=== PATIENT | female | born 1970 | race Caucasian/White ===

== ENCOUNTER 2023-04-10 11:15 | Outpatient (RCR) | payer MEDICAID, SELFPAY ==
--- NOTE | 2023-03-18 16:00 | PT.OPPOC ---
Physical, Occupational & Speech Therapy At [facility] Current Diagnoses Bilateral primary osteoarthritis of knee (03/18/23) Pain in right knee (03/18/23) Pain in left knee (03/18/23) Visit Care Team Role Provider Type Terrance Lozano PA-C Attending Provider Non-Staff Family Provider Primary Care Provider Referring Provider Specialty: Medical Address: [facility] [address] [place], [address] Phone: Email: Plan Of Care PT-OP-T Assessment and Plan Start: 03/17/23 16:33 Freq: Status: Active Protocol: Document 03/18/23 11:17 SAK (Rec: 03/18/23 12:01 SAK [id number]) Physical Therapy Assessment Impairments Impairments Activity Tolerance,Edema,Gait, Pain,Strength Goals Four Impairment antalgic gait Short Term Goal (STG) Patient will be able to walk without significant limp using knee brace and assistive device PRN STG Duration 04/18/23 Alf Goal (LTG) Patient will be able to walk on level and uneven surfaces without limp without assistive device LTG Duration 05/17/23 Three Impairment no current exercise program Short Term Goal (STG) Patient to be instructed in HEP to address strength and flexibility LE's STG Duration 04/18/23 Alf Goal (LTG) Patient to be independnet and compliant with HEP and demonstrate right knee flxibility WNL and strength 5/ 5 Two Impairment LEFS score 32% Impairment impaired activity tolerance Short Term Goal (STG) Improve LEFS to at least 50% as measure of imporoved activity tolerance STG Duration 04/18/23 Alf Goal (LTG) Improve LEFS to at least 75% as measure of improved activity tolerance and quality of life LTG Duration 05/17/23 One Impairment right knee pain as high as 8-9 /10 with movement, walking Short Term Goal (STG) Decrease pain to no greater than 5/10 with all usual activities including movement of knee and walking STG Duration 04/18/23 Electric Welder Helper Goal (LTG) Decrease pain to no greater than 2/10 with all usual activities including movement of knee and walking LTG Duration 05/17/23 Assessment Summary Assessment Patient presents to PT with function-limiting pain right knee 8-9/10 intensity with movement and weight-bearing, no known cause. Does have a history of right knee surgery 14 years ago but can't remember procedure. Is wearing velcro knee brace and taking Ibuprofen. Severely restricted mobility due to pain. x-ray at urgent care showed arthritis per patient report. No MRI. Patient has moderate swelling ant med right knee. Objective evaluation difficult due to high pain level but signs and symptoms consistent with potential meniscal tear in addition to arthritis. Initial treatment will need to focus on pain and edema reduction, and move into ther ex as tolerated. POC was discussed and patient was in agreement. Physical Therapy Plan Frequency and Duration Frequency of Treatment 2x/Week Duration of treatment (weeks) 8 Plan of Care Start Date 03/18/23 Plan of Care End Date 05/17/23 Therapeutic Interventions Therapeutic Interventions Gait Training,Home Exercise Program,Manual Therapy, Neuromuscular Re-education, Patient/Caregiver Education, Self-Care/Home Management,Soft Tissue Mobilization,Taping, Therapeutic Activities, Therapeutic Exercises Modalities Cold Pack/Ice Massage,Electric Stimulation,Hot Packs Next Visit Focus/Plan Next Note Type Treatment Note Next Visit Plan Gentle ther ex, consider cold laser right knee, IFES and ice right knee. Instruct in use of assistive device for offloading right knee Plan of Care Dates Plan of Care Start Date 03/18/23 Plan of Care End Date 05/17/23 Electronically Signed by: Varsha Crockett, PT 03/24/23 0933 If you are in agreement with this Plan of Care, please return a signed and dated copy. I have reviewed this Plan of Care and certify that the skilled therapy services above are required to meet the patient?s needs. Physician Signature Date Printed Name and Credentials Clinical Instructor Signature Printed Name and Credentials
--- NOTE | 2023-03-18 16:00 | PT.OIE ---
Current Diagnoses Bilateral primary osteoarthritis of knee (03/18/23) Pain in right knee (03/18/23) Pain in left knee (03/18/23) Visit Care Team Role Provider Type Terrance Lozano PA-C Attending Provider Non-Staff Family Provider Primary Care Provider Referring Provider Specialty: Medical Address: [facility], [address] [place], [address] Phone: Email: Physical Therapy Initial Evaluation PT-OP-A Visit Information Start: 03/17/23 16:33 Freq: Status: Active Protocol: Document 03/18/23 11:17 SAK (Rec: 03/18/23 12:01 SAK [id number]) Out-Patient Physical Therapy Visit Information Visit Information Visit Type Initial Evaluation Visit Start Time 11:18 Visit Stop Time 12:02 Total Visit Minutes 44 Visit Number 1 Evaluation Information Evaluation Date 03/03/23 PT-OP-B Current Condition Start: 03/17/23 16:33 Freq: Status: Active Protocol: Document 03/18/23 11:17 SAK (Rec: 03/18/23 12:01 SAK [id number]) Current Condition History of Current Condition Onset Date 2 months Current Complaints right knee pain History of Current Condition surgery right knee 14 years ago, has continued to hurt some but 2 months ago really increased. WEnt to urgent care, given knee brace, using and feels helps a little. x- ray showed arthritis. No other imaging, may have MRI in the future especially if PT doesn't help. States pain has been really bad lately. No use of cane or other device. Has used some heat on knee but didn't help. Tried ice only once. Taking Ibuprofen, no other meds. When questioned reports was given prescription for Meloxican but realizes she forgot to get. No regular exercise. Reports occasional numbness distal thigh right. Also c/o right knee swelling. Goes to [facility]. Future Testing and Treatments Planned possible MRI Treatment Goals Patient/Caregiver Goals Decrease pain, be able Prior Functional Status Baseline Function- ADL's Independent Baseline Function- Mobility Independent Baseline Function- Gait indep Baseline Function- Recreation/Hobbies hiking, mushrom picking Current Functional Impairments (Reported) Functional Limitations- Mobility/Gait painful, uses brace, hasn't yet tried cane Functional Limitations- Recreation/ severe pain, not able to hike Hobbies or squat PT-OP-C Subjective Start: 03/17/23 16:33 Freq: Status: Active Protocol: Document 03/18/23 09:17 [facility] (Rec: 03/24/23 09:32 [facility] [id number]) Patient Questionnaires Lower Extremity Functional Scale LEFS Score 32% OP-PT Pain Assessment Pain Assessment Grid Paper Pain Assessment Grid Completed Yes Location right knee Intensity 9 Description Aching,Burning,Pressure,Sharp, Stabbing,Tender,Throbbing, Tingling,With Movement Frequency Frequent Pain Aggravating Factors Activity,Standing,Walking, Stair Climbing Pain Alleviating Factors Cold,Heat,Inactivity,Rest PT-OP-G Mobility & Gait Start: 03/17/23 16:33 Freq: Status: Active Protocol: Document 03/18/23 09:17 [facility] (Rec: 03/24/23 09:32 [facility] [id number]) OP Gait Assessment Gait Gait Assistance Required: Independent Able to Maintain Weight Bearing Status Yes During Gait Assistive Devices Assistive Device None Gait Deviations General Gait Pattern Antalgic Factors Limiting Gait Function Factors Limiting Gait Function Pain Stair Climbing Evaluation Comments Stair Climbing Comments not done today PT-OP-H Neuro Start: 03/17/23 16:33 Freq: Status: Active Protocol: Document 03/18/23 09:17 [facility] (Rec: 03/24/23 09:32 [facility] [id number]) Sensation Evaluation Gross Sensation Gross Sensation WNL PT-OP-J Posture/Palpation/Skin Start: 03/17/23 16:33 Freq: Status: Active Protocol: Document 03/18/23 09:17 [facility] (Rec: 03/24/23 09:32 [facility] [id number]) Posture Evaluation Position Standing Knee Posture (R) Excess Flexion Comments Posture Comments decreased weight bearing right Skin Assessment Edema Assessment right knee Edema Type Non-Pitting Edema Appearance Puffy Subjective Edema Description Pain,Tightness PT-OP-K Range of Motion Start: 03/17/23 16:33 Freq: Status: Active Protocol: Document 03/18/23 09:17 [facility] (Rec: 03/24/23 09:32 [facility] [id number]) Hip Goniometric Range of Motion Hip maddi Hip ROM WFL Yes Knee Goniometric Range of Motion Knee Right Knee ROM WFL No Flexion Active (degrees) 95 Extension Active (degrees) 15 Left Knee ROM WFL Yes Ankle and Foot Goniometric Range of Motion Ankle and Foot Right Ankle/Foot ROM WFL No Dorsiflexion with Knee Flexed 5 Dorsiflexion with Knee Extended 0 Left Ankle/Foot ROM WFL Yes PT-OP-L Special Tests Start: 03/17/23 16:33 Freq: Status: Active Protocol: Document 03/18/23 09:17 [facility] (Rec: 03/24/23 09:32 [facility] [id number]) Special Tests Knee Special Tests Posterior Draw Test Results - Anterior Draw Test Results - PT-OP-M Strength Start: 03/17/23 16:33 Freq: Status: Active Protocol: Document 03/18/23 09:17 [facility] (Rec: 03/24/23 09:32 [facility] [id number]) Hip Strength Hip Manual Muscle Testing Right Comments painful all motions Left Flexion (L2) 5 Normal Extension (S1) 5 Normal Abduction 5 Normal External Rotation 5 Normal Internal Rotation 5 Normal Knee Strength Knee Manual Muscle Testing Right Flexion (S2) 3- Fair- Extension (L3) 3- Fair- Left Flexion (S2) 3- Fair- Extension (L3) 3- Fair- Comments limited by pain PT-OP-Q Treatments Start: 03/17/23 16:33 Freq: Status: Active Protocol: Document 03/18/23 09:17 [facility] (Rec: 03/24/23 09:32 [facility] [id number]) Manual Therapy Treatment Taping right knee Body Location right knee Treatment Focus edema reduction Type of Tape Kinesio Tape Skin Inspection intact Comments 2 fan strips, crossing on ant right knee with paper off tension Self-Care/Home Management Treatment Education Patient Education Home Exercise Program Other Education ankle pumps and gentle isometrics PT-OP-R Modalities Start: 03/17/23 16:33 Freq: Status: Active Protocol: Document 03/18/23 11:17 [facility] (Rec: 03/18/23 12:01 [facility] [id number]) Electric Stimulation Electric Stimulation Interferential Current (IFC) Duration (Minutes) 10 Combined With Heat/Cold Cold Pack PT-OP-T Assessment and Plan Start: 03/17/23 16:33 Freq: Status: Active Protocol: Document 03/18/23 11:17 [facility] (Rec: 03/18/23 12:01 [facility] [id number]) Physical Therapy Assessment Impairments Impairments Activity Tolerance,Edema,Gait, Pain,Strength Goals Four Impairment antalgic gait Short Term Goal (STG) Patient will be able to walk without significant limp using knee brace and assistive device PRN STG Duration 04/18/23 Fci Goal (LTG) Patient will be able to walk on level and uneven surfaces without limp without assistive device LTG Duration 05/17/23 Three Impairment no current exercise program Short Term Goal (STG) Patient to be instructed in HEP to address strength and flexibility LE's STG Duration 04/18/23 Microbiology Quality Control Technician Goal (LTG) Patient to be independnet and compliant with HEP and demonstrate right knee flxibility WNL and strength 5/ 5 Two Impairment LEFS score 32% Impairment impaired activity tolerance Short Term Goal (STG) Improve LEFS to at least 50% as measure of imporoved activity tolerance STG Duration 04/18/23 Fci Goal (LTG) Improve LEFS to at least 75% as measure of improved activity tolerance and quality of life LTG Duration 05/17/23 One Impairment right knee pain as high as 8-9 /10 with movement, walking Short Term Goal (STG) Decrease pain to no greater than 5/10 with all usual activities including movement of knee and walking STG Duration 04/18/23 Fci Goal (LTG) Decrease pain to no greater than 2/10 with all usual activities including movement of knee and walking LTG Duration 05/17/23 Assessment Summary Assessment Patient presents to PT with function-limiting pain right knee 8-9/10 intensity with movement and weight-bearing, no known cause. Does have a history of right knee surgery 14 years ago but can't remember procedure. Is wearing velcro knee brace and taking Ibuprofen. Severely restricted mobility due to pain. x-ray at urgent care showed arthritis per patient report. No MRI. Patient has moderate swelling ant med right knee. Objective evaluation difficult due to high pain level but signs and symptoms consistent with potential meniscal tear in addition to arthritis. Initial treatment will need to focus on pain and edema reduction, and move into ther ex as tolerated. POC was discussed and patient was in agreement. Physical Therapy Plan Frequency and Duration Frequency of Treatment 2x/Week Duration of treatment (weeks) 8 Plan of Care Start Date 03/18/23 Plan of Care End Date 05/17/23 Therapeutic Interventions Therapeutic Interventions Gait Training,Home Exercise Program,Manual Therapy, Neuromuscular Re-education, Patient/Caregiver Education, Self-Care/Home Management,Soft Tissue Mobilization,Taping, Therapeutic Activities, Therapeutic Exercises Modalities Cold Pack/Ice Massage,Electric Stimulation,Hot Packs Next Visit Focus/Plan Next Note Type Treatment Note Next Visit Plan Gentle ther ex, consider cold laser right knee, IFES and ice right knee. Instruct in use of assistive device for offloading right knee
--- NOTE | 2023-04-01 14:10 | PT-OP ANOTE ---
DNS; called from parking lot at 1410 for 1345 appt.
--- NOTE | 2023-04-03 12:02 | PT.OTN ---
Current Diagnoses Bilateral primary osteoarthritis of knee (04/03/23) Pain in right knee (04/03/23) Pain in left knee (04/03/23) Physical Therapy Treatment Note PT-OP-A Visit Information Start: 03/17/23 16:33 Freq: Status: Active Protocol: Document 04/03/23 11:17 SAK (Rec: 04/03/23 12:02 [facility] [id number]) Out-Patient Physical Therapy Visit Information Visit Information Visit Type Treatment Note Visit Note 04/14 Visit Start Time 11:17 Visit Stop Time 12:07 Visit Number 2 Evaluation Information Evaluation Date 03/03/23 Precautions Precautions patient attends [facility] PT-OP-B Current Condition Start: 03/17/23 16:33 Freq: Status: Active Protocol: Document 04/03/23 11:17 SAK (Rec: 04/03/23 12:02 [facility] [id number]) Current Condition History of Current Condition Onset Date 2 months Current Complaints right knee pain History of Current Condition surgery right knee 14 years ago, has continued to hurt some but 2 months ago really increased. WEnt to urgent care, given knee brace, using and feels helps a little. x- ray showed arthritis. No other imaging, may have MRI in the future especially if PT doesn't help. States pain has been really bad lately. No use of cane or other device. Has used some heat on knee but didn't help. Tried ice only once. Taking Ibuprofen, no other meds. When questioned reports was given prescription for Meloxican but realizes she forgot to get. No regular exercise. Reports occasional numbness distal thigh right. Also c/o right knee swelling. Goes to [facility]. Future Testing and Treatments Planned possible MRI PT-OP-C Subjective Start: 03/17/23 16:33 Freq: Status: Active Protocol: Document 04/03/23 11:17 SAK (Rec: 04/03/23 12:02 [facility] [id number]) OP-PT Subjective Patient Comments Patient Comments patient reports she has done a few of the exercises but not much due to memory and helping a friend with project. Kinesiotape helpful in dec pain and swelling. Fell off after 3 days. PT-OP-G Mobility & Gait Start: 03/17/23 16:33 Freq: Status: Active Protocol: Document 03/18/23 09:17 SAK (Rec: 03/24/23 09:32 [facility] [id number]) OP Gait Assessment Gait Gait Assistance Required: Independent Able to Maintain Weight Bearing Status Yes During Gait Assistive Devices Assistive Device None Gait Deviations General Gait Pattern Antalgic Factors Limiting Gait Function Factors Limiting Gait Function Pain Stair Climbing Evaluation Comments Stair Climbing Comments not done today PT-OP-H Neuro Start: 03/17/23 16:33 Freq: Status: Active Protocol: Document 03/18/23 09:17 [facility] (Rec: 03/24/23 09:32 [facility] [id number]) Sensation Evaluation Gross Sensation Gross Sensation WNL PT-OP-J Posture/Palpation/Skin Start: 03/17/23 16:33 Freq: Status: Active Protocol: Document 03/18/23 09:17 SAK (Rec: 03/24/23 09:32 [facility] [id number]) Posture Evaluation Position Standing Knee Posture (R) Excess Flexion Comments Posture Comments decreased weight bearing right Skin Assessment Edema Assessment right knee Edema Type Non-Pitting Edema Appearance Puffy Subjective Edema Description Pain,Tightness PT-OP-K Range of Motion Start: 03/17/23 16:33 Freq: Status: Active Protocol: Document 03/18/23 09:17 [facility] (Rec: 03/24/23 09:32 [facility] [id number]) Hip Goniometric Range of Motion Hip maddi Hip ROM WFL Yes Knee Goniometric Range of Motion Knee Right Knee ROM WFL No Flexion Active (degrees) 95 Extension Active (degrees) 15 Left Knee ROM WFL Yes Ankle and Foot Goniometric Range of Motion Ankle and Foot Right Ankle/Foot ROM WFL No Dorsiflexion with Knee Flexed 5 Dorsiflexion with Knee Extended 0 Left Ankle/Foot ROM WFL Yes PT-OP-L Special Tests Start: 03/17/23 16:33 Freq: Status: Active Protocol: Document 03/18/23 09:17 [facility] (Rec: 03/24/23 09:32 [facility] [id number]) Special Tests Knee Special Tests Posterior Draw Test Results - Anterior Draw Test Results - PT-OP-M Strength Start: 03/17/23 16:33 Freq: Status: Active Protocol: Document 03/18/23 09:17 SAK (Rec: 03/24/23 09:32 [facility] [id number]) Hip Strength Hip Manual Muscle Testing Right Comments painful all motions Left Flexion (L2) 5 Normal Extension (S1) 5 Normal Abduction 5 Normal External Rotation 5 Normal Internal Rotation 5 Normal Knee Strength Knee Manual Muscle Testing Right Flexion (S2) 3- Fair- Extension (L3) 3- Fair- Left Flexion (S2) 3- Fair- Extension (L3) 3- Fair- Comments limited by pain PT-OP-Q Treatments Start: 03/17/23 16:33 Freq: Status: Active Protocol: Document 04/03/23 11:17 [facility] (Rec: 04/03/23 12:02 [facility] [id number]) Therapeutic Exercises Supine Exercises glut set Reps/Minutes 10x5 quad set Reps/Minutes 10x5 Sitting Exercises HS isometric Equipment Used chair, ball Reps/Minutes 10x5 ankle pumps Reps/Minutes 10x Gait Training Gait Activity trekking poles Device Used 1,2 poles Level of Assistance SBA, cues for sequencing Distance/Duration 100 ft x 2 Treatment Focus offloading right knee Manual Therapy Treatment Taping right knee Body Location right knee Treatment Focus edema reduction Type of Tape Kinesio Tape Skin Inspection intact Comments 2 fan strips, crossing on ant right knee with paper off tension Self-Care/Home Management Treatment Education Other Education reviewed HEP PT-OP-R Modalities Start: 03/17/23 16:33 Freq: Status: Active Protocol: Document 04/03/23 11:17 [facility] (Rec: 04/03/23 12:02 [facility] [id number]) Electric Stimulation Electric Stimulation Interferential Current (IFC) Intensity 25 Target/Sweep Sweep Combined With Heat/Cold Cold Pack Comments 10 min PT-OP-T Assessment and Plan Start: 03/17/23 16:33 Freq: Status: Active Protocol: Document 04/03/23 11:17 [facility] (Rec: 04/03/23 12:02 [facility] [id number]) Physical Therapy Assessment Impairments Impairments Activity Tolerance,Edema,Gait, Pain,Strength Goals Four Impairment antalgic gait Short Term Goal (STG) Patient will be able to walk without significant limp using knee brace and assistive device PRN STG Duration 04/18/23 Fare Register Repairer Goal (LTG) Patient will be able to walk on level and uneven surfaces without limp without assistive device LTG Duration 05/17/23 Three Impairment no current exercise program Short Term Goal (STG) Patient to be instructed in HEP to address strength and flexibility LE's STG Duration 04/18/23 Halfway Goal (LTG) Patient to be independnet and compliant with HEP and demonstrate right knee flxibility WNL and strength 5/ 5 Two Impairment LEFS score 32% Impairment impaired activity tolerance Short Term Goal (STG) Improve LEFS to at least 50% as measure of imporoved activity tolerance STG Duration 04/18/23 Fare Register Repairer Goal (LTG) Improve LEFS to at least 75% as measure of improved activity tolerance and quality of life LTG Duration 05/17/23 One Impairment right knee pain as high as 8-9 /10 with movement, walking Short Term Goal (STG) Decrease pain to no greater than 5/10 with all usual activities including movement of knee and walking STG Duration 04/18/23 Halfway Goal (LTG) Decrease pain to no greater than 2/10 with all usual activities including movement of knee and walking LTG Duration 05/17/23 Assessment Summary Assessment low compliance to HEP due to memory issues and helping friend with project. Patient does remember being given handout. [place] kinesiotape was helpful to dec swelling and pain but came off after 3 days . Hasn't been seen in PT x 2 weeks. Physical Therapy Plan Frequency and Duration Frequency of Treatment 2x/Week Duration of treatment (weeks) 8 Plan of Care Start Date 03/18/23 Plan of Care End Date 05/17/23 Therapeutic Interventions Therapeutic Interventions Gait Training,Home Exercise Program,Manual Therapy, Neuromuscular Re-education, Patient/Caregiver Education, Self-Care/Home Management,Soft Tissue Mobilization,Taping, Therapeutic Activities, Therapeutic Exercises Modalities Cold Pack/Ice Massage,Electric Stimulation,Hot Packs Next Visit Focus/Plan Next Note Type Treatment Note Next Visit Plan Continue progresion of ther ex , do standing heel/toe raise and minisquats with mirror for visual feedback. Consider cold laser. Review gait with trekking poles.
--- NOTE | 2023-04-10 12:14 | PT.OTN ---
Current Diagnoses Bilateral primary osteoarthritis of knee (04/10/23) Pain in right knee (04/10/23) Pain in left knee (04/10/23) Physical Therapy Treatment Note PT-OP-A Visit Information Start: 03/17/23 16:33 Freq: Status: Active Protocol: Document 04/10/23 11:18 [facility]AK (Rec: 04/10/23 12:14 [facility] [id number]) Out-Patient Physical Therapy Visit Information Visit Information Visit Type Treatment Note Visit Note 05/12 Visit Start Time 11:17 Visit Stop Time 12:09 Visit Number 3 Evaluation Information Evaluation Date 03/03/23 Precautions Precautions patient attends [facility] PT-OP-B Current Condition Start: 03/17/23 16:33 Freq: Status: Active Protocol: Document 04/10/23 11:18 SAK (Rec: 04/10/23 12:14 [facility] [id number]) Current Condition History of Current Condition Onset Date 2 months Current Complaints right knee pain History of Current Condition surgery right knee 14 years ago, has continued to hurt some but 2 months ago really increased. WEnt to urgent care, given knee brace, using and feels helps a little. x- ray showed arthritis. No other imaging, may have MRI in the future especially if PT doesn't help. States pain has been really bad lately. No use of cane or other device. Has used some heat on knee but didn't help. Tried ice only once. Taking Ibuprofen, no other meds. When questioned reports was given prescription for Meloxican but realizes she forgot to get. No regular exercise. Reports occasional numbness distal thigh right. Also c/o right knee swelling. Goes to [facility]. Future Testing and Treatments Planned possible MRI Treatment Goals Patient/Caregiver Goals Decrease pain, be able to return to prior level of function PT-OP-C Subjective Start: 03/17/23 16:33 Freq: Status: Active Protocol: Document 04/10/23 11:18 SAK (Rec: 04/10/23 12:14 [facility] [id number]) OP-PT Subjective Patient Comments Patient Comments Has done HEP, the one with towel is hard. [employer] likes kinesiotape but it fell off same day. Hoping to be able to go to [facility] for aquatic exercise. PT-OP-G Mobility & Gait Start: 03/17/23 16:33 Freq: Status: Active Protocol: Document 03/18/23 09:17 [facility] (Rec: 03/24/23 09:32 [facility] [id number]) OP Gait Assessment Gait Gait Assistance Required: Independent Able to Maintain Weight Bearing Status Yes During Gait Assistive Devices Assistive Device None Gait Deviations General Gait Pattern Antalgic Factors Limiting Gait Function Factors Limiting Gait Function Pain Stair Climbing Evaluation Comments Stair Climbing Comments not done today PT-OP-H Neuro Start: 03/17/23 16:33 Freq: Status: Active Protocol: Document 03/18/23 09:17 [facility]AK (Rec: 03/24/23 09:32 [facility] [id number]) Sensation Evaluation Gross Sensation Gross Sensation WNL PT-OP-J Posture/Palpation/Skin Start: 03/17/23 16:33 Freq: Status: Active Protocol: Document 03/18/23 09:17 [facility]AK (Rec: 03/24/23 09:32 [facility] [id number]) Posture Evaluation Position Standing Knee Posture (R) Excess Flexion Comments Posture Comments decreased weight bearing right Skin Assessment Edema Assessment right knee Edema Type Non-Pitting Edema Appearance Puffy Subjective Edema Description Pain,Tightness PT-OP-K Range of Motion Start: 03/17/23 16:33 Freq: Status: Active Protocol: Document 03/18/23 09:17 [facility]AK (Rec: 03/24/23 09:32 [facility] [id number]) Hip Goniometric Range of Motion Hip maddi Hip ROM WFL Yes Knee Goniometric Range of Motion Knee Right Knee ROM WFL No Flexion Active (degrees) 95 Extension Active (degrees) 15 Left Knee ROM WFL Yes Ankle and Foot Goniometric Range of Motion Ankle and Foot Right Ankle/Foot ROM WFL No Dorsiflexion with Knee Flexed 5 Dorsiflexion with Knee Extended 0 Left Ankle/Foot ROM WFL Yes PT-OP-L Special Tests Start: 03/17/23 16:33 Freq: Status: Active Protocol: Document 03/18/23 09:17 [facility] (Rec: 03/24/23 09:32 [facility] [id number]) Special Tests Knee Special Tests Posterior Draw Test Results - Anterior Draw Test Results - PT-OP-M Strength Start: 03/17/23 16:33 Freq: Status: Active Protocol: Document 03/18/23 09:17 [facility]AK (Rec: 03/24/23 09:32 [facility] [id number]) Hip Strength Hip Manual Muscle Testing Right Comments painful all motions Left Flexion (L2) 5 Normal Extension (S1) 5 Normal Abduction 5 Normal External Rotation 5 Normal Internal Rotation 5 Normal Knee Strength Knee Manual Muscle Testing Right Flexion (S2) 3- Fair- Extension (L3) 3- Fair- Left Flexion (S2) 3- Fair- Extension (L3) 3- Fair- Comments limited by pain PT-OP-Q Treatments Start: 03/17/23 16:33 Freq: Status: Active Protocol: Document 04/10/23 11:18 [facility] (Rec: 04/10/23 12:14 [facility] [id number]) Cardio Equipment Recumbent Elliptical (Biodex) Duration (Minutes) 6 Resistance 1 Seat Position 6 Therapeutic Exercises Supine Exercises ball squeeze Reps/Minutes 10x short arc quad Reps/Minutes 10x heel dig Reps/Minutes 10x bridge Reps/Minutes 10x SLR Reps/Minutes 10x Sidelying Exercises hip abduction Reps/Minutes 10x Sitting Exercises HS isometric Equipment Used chair, ball Reps/Minutes 2x Comments discontinued Standing Exercises squats Standing Exercise Name shallow, chaiar Reps/Minutes 10x heel/toe raise Reps/Minutes 10x Manual Therapy Treatment Taping right knee Body Location right knee Treatment Focus edema reduction Type of Tape Kinesio Tape Skin Inspection intact Comments 2 fan strips, crossing on ant right knee with paper off tension Self-Care/Home Management Treatment Education Other Education issued updated HEP PT-OP-R Modalities Start: 03/17/23 16:33 Freq: Status: Active Protocol: Document 04/10/23 11:18 [facility] (Rec: 04/10/23 12:14 [facility] [id number]) Electric Stimulation Electric Stimulation Interferential Current (IFC) Intensity 25 Target/Sweep Sweep Combined With Heat/Cold Cold Pack Comments 10 min PT-OP-T Assessment and Plan Start: 03/17/23 16:33 Freq: Status: Active Protocol: Document 04/10/23 11:18 [facility] (Rec: 04/10/23 12:14 [facility] [id number]) Physical Therapy Assessment Impairments Impairments Activity Tolerance,Edema,Gait, Pain,Strength Goals Four Impairment antalgic gait Short Term Goal (STG) Patient will be able to walk without significant limp using knee brace and assistive device PRN STG Duration 04/18/23 [employer] Goal (LTG) Patient will be able to walk on level and uneven surfaces without limp without assistive device LTG Duration 05/17/23 Three Impairment no current exercise program Short Term Goal (STG) Patient to be instructed in HEP to address strength and flexibility LE's STG Duration 04/18/23 [employer] Goal (LTG) Patient to be independnet and compliant with HEP and demonstrate right knee flxibility WNL and strength 5/ 5 Two Impairment LEFS score 32% Impairment impaired activity tolerance Short Term Goal (STG) Improve LEFS to at least 50% as measure of imporoved activity tolerance STG Duration 04/18/23 [employer] Goal (LTG) Improve LEFS to at least 75% as measure of improved activity tolerance and quality of life LTG Duration 05/17/23 One Impairment right knee pain as high as 8-9 /10 with movement, walking Short Term Goal (STG) Decrease pain to no greater than 5/10 with all usual activities including movement of knee and walking STG Duration 04/18/23 Correction Goal (LTG) Decrease pain to no greater than 2/10 with all usual activities including movement of knee and walking LTG Duration 05/17/23 Assessment Summary Assessment Patient able to progress with ther ex, updated HEP HO. Good tolerance. Continues to benefit from kinesiotape, used rubbing alcohol to clean skin prior to taping for improved adherence Physical Therapy Plan Frequency and Duration Frequency of Treatment 2x/Week Duration of treatment (weeks) 8 Plan of Care Start Date 03/18/23 Plan of Care End Date 05/17/23 Therapeutic Interventions Therapeutic Interventions Gait Training,Home Exercise Program,Manual Therapy, Neuromuscular Re-education, Patient/Caregiver Education, Self-Care/Home Management,Soft Tissue Mobilization,Taping, Therapeutic Activities, Therapeutic Exercises Modalities Cold Pack/Ice Massage,Electric Stimulation,Hot Packs Next Visit Focus/Plan Next Note Type Treatment Note Next Visit Plan Assess response to last session, continue to progress HEP as tolerated.
--- NOTE | 2023-05-08 11:43 | PT-OP ANOTE ---
Addendum entered and electronically signed by Varsha Crockett, PT 05/08/23 11:43: DNS. Spoke to patient by phone; she states she called 1 week ago stating she thought she would need to cancel but was told no other appointments available. She is currently in [place]. Begged to not be discharged. Patient informed she doesn't have any further appointment scheduled. She stated she promises not to miss any more appointments, that she really needs it because her knee is so bad, will call to schedule when she returns home. Informed she would definitely be discharged if she were to miss any further appointments. Patient agreed. [ End ] Original Note: DNS.
--- NOTE | 2023-06-04 16:10 | PT.OPDS ---
Current Diagnoses Bilateral primary osteoarthritis of knee (04/10/23) Pain in right knee (04/10/23) Pain in left knee (04/10/23) Visit Care Team Role Provider Type Terrance Lozano PA-C Attending Provider Non-Staff Family Provider Primary Care Provider Referring Provider Specialty: Medical Address: [facility], [address] [place], [address] Phone: Email: Visit Number Visit Number 3 Discharge Summary PT-OP-B Current Condition Start: 03/17/23 16:33 Freq: Status: Active Protocol: Document 04/10/23 11:18 [facility] (Rec: 04/10/23 12:14 [facility] [id number]) Current Condition History of Current Condition Onset Date 2 months Current Complaints right knee pain History of Current Condition surgery right knee 14 years ago, has continued to hurt some but 2 months ago really increased. WEnt to urgent care, given knee brace, using and feels helps a little. x- ray showed arthritis. No other imaging, may have MRI in the future especially if PT doesn't help. States pain has been really bad lately. No use of cane or other device. Has used some heat on knee but didn't help. Tried ice only once. Taking Ibuprofen, no other meds. When questioned reports was given prescription for Meloxican but realizes she forgot to get. No regular exercise. Reports occasional numbness distal thigh right. Also c/o right knee swelling. Goes to [facility]. Future Testing and Treatments Planned possible MRI Treatment Goals Patient/Caregiver Goals Decrease pain, be able to return to prior level of function PT-OP-C Subjective Start: 03/17/23 16:33 Freq: Status: Active Protocol: Document 04/10/23 11:18 [facility] (Rec: 04/10/23 12:14 [facility] [id number]) OP-PT Subjective Patient Comments Patient Comments Has done HEP, the one with towel is hard. [employer] likes kinesiotape but it fell off same day. Hoping to be able to go to [facility] [place] for aquatic exercise. PT-OP-G Mobility & Gait Start: 03/17/23 16:33 Freq: Status: Active Protocol: Document 03/18/23 09:17 [facility] (Rec: 03/24/23 09:32 [facility] [id number]) OP Gait Assessment Gait Gait Assistance Required: Independent Able to Maintain Weight Bearing Status Yes During Gait Assistive Devices Assistive Device None Gait Deviations General Gait Pattern Antalgic Factors Limiting Gait Function Factors Limiting Gait Function Pain Stair Climbing Evaluation Comments Stair Climbing Comments not done today PT-OP-H Neuro Start: 03/17/23 16:33 Freq: Status: Active Protocol: Document 03/18/23 09:17 [facility] (Rec: 03/24/23 09:32 [facility] [id number]) Sensation Evaluation Gross Sensation Gross Sensation WNL PT-OP-J Posture/Palpation/Skin Start: 03/17/23 16:33 Freq: Status: Active Protocol: Document 03/18/23 09:17 [facility] (Rec: 03/24/23 09:32 [facility] [id number]) Posture Evaluation Position Standing Knee Posture (R) Excess Flexion Comments Posture Comments decreased weight bearing right Skin Assessment Edema Assessment right knee Edema Type Non-Pitting Edema Appearance Puffy Subjective Edema Description Pain,Tightness PT-OP-K Range of Motion Start: 03/17/23 16:33 Freq: Status: Active Protocol: Document 03/18/23 09:17 [facility] (Rec: 03/24/23 09:32 [facility] [id number]) Hip Goniometric Range of Motion Hip maddi Hip ROM WFL Yes Knee Goniometric Range of Motion Knee Right Knee ROM WFL No Flexion Active (degrees) 95 Extension Active (degrees) 15 Left Knee ROM WFL Yes Ankle and Foot Goniometric Range of Motion Ankle and Foot Right Ankle/Foot ROM WFL No Dorsiflexion with Knee Flexed 5 Dorsiflexion with Knee Extended 0 Left Ankle/Foot ROM WFL Yes PT-OP-L Special Tests Start: 03/17/23 16:33 Freq: Status: Active Protocol: Document 03/18/23 09:17 [facility] (Rec: 03/24/23 09:32 [facility] [id number]) Special Tests Knee Special Tests Posterior Draw Test Results - Anterior Draw Test Results - PT-OP-M Strength Start: 03/17/23 16:33 Freq: Status: Active Protocol: Document 03/18/23 09:17 [facility] (Rec: 03/24/23 09:32 [facility] [id number]) Hip Strength Hip Manual Muscle Testing Right Comments painful all motions Left Flexion (L2) 5 Normal Extension (S1) 5 Normal Abduction 5 Normal External Rotation 5 Normal Internal Rotation 5 Normal Knee Strength Knee Manual Muscle Testing Right Flexion (S2) 3- Fair- Extension (L3) 3- Fair- Left Flexion (S2) 3- Fair- Extension (L3) 3- Fair- Comments limited by pain PT-OP-T Assessment and Plan Start: 03/17/23 16:33 Freq: Status: Active Protocol: Document 06/04/23 16:09 [facility] (Rec: 06/04/23 16:10 [facility] [id number]) Physical Therapy Plan Discharge Physical Therapy Discharge Reasons No Longer Attending PT
== END 2023-06-06 10:30 | disposition home or self-care (01) ==
LOC: PHYS 11:15
PROVIDERS: Family Provider Physician Assistant; PCP Physician Assistant; Referring Provider Physician Assistant; Visit Provider Physician Assistant
DX: M17.0 Bilateral primary osteoarthritis of knee (principal); M25.561 Pain in right knee; M25.562 Pain in left knee
CPT/HCPCS: 97014; 97110; 97140; 97162; G0283

== ENCOUNTER 2023-05-13 14:21 | Emergency (ER) | payer OTHER, MEDICAID, SELFPAY ==
[2023-05-13 14:24] VITALS: BP 145/88; PULSE 88; RESP 16; TEMP 36.2; O2SAT 100; BMI 32.8
--- NOTE | 2023-05-13 14:36 | ED.SKABFB ---
HPI - Skin/Abscess/Foreign Bdy <Blake Covington PA-C - Last Filed: 05/13/23 15:37> General Chief complaint: Skin/Abscess/Foreign Body Stated complaint: pain in the back of the neck Time Seen by Provider: 05/13/23 14:32 Source: patient Mode of arrival: Ambulatory History of Present Illness HPI narrative: 53-year-old female with past medical history psoriasis, hypertension, hypothyroidism presents to the ED with 3 days of a lump behind the right ear. Patient states that due to her psoriasis, her skin can get crusty, scabby. Patient states that she started feeling a lump 3 days ago which is extremely painful. Patient denies fever, chills, nausea, vomiting. Related Data Previous Rx's Medication Instructions Recorded doxycycline hyclate 100 mg capsule 100 mg PO BID 7 days #14 caps 05/13/23 Allergies Allergy/AdvReac Type Severity Reaction Status Date / Time codeine AdvReac Rash Verified 05/13/23 14:24 Review of Systems <Blake Covington PA-C - Last Filed: 05/13/23 15:37> Constitutional Constitutional: Denies chills, Denies fatigue, Denies fever(s), Denies frequent falls, Denies lethargy and Denies weakness Eyes Eyes: Denies change in vision, Denies eye discharge, Denies irritation and Denies loss of vision ENT Ears, Nose, Mouth, and Throat: Denies change in voice, Denies dizziness, Denies neck pain, Denies sore throat and Denies throat swelling Cardiovascular Cardiovascular: Denies chest pain, Denies irregular heart rhythm, Denies lightheadedness, Denies palpitations, Denies dyspnea, Denies dyspnea on exertion and Denies orthopnea Respiratory Respiratory: Denies cough, Denies dyspnea, Denies dyspnea on exertion and Denies wheezing Gastrointestinal Gastrointestinal: Denies abdominal pain, Denies change in bowel habits, Denies diarrhea, Denies nausea and Denies vomiting Musculoskeletal Musculoskeletal: Denies neck pain and Denies numbness Integumentary/Breasts Skin/Breast: Denies pruritus, Denies erythema, Denies rash and Denies wounds Neurologic Neurologic: Denies behavioral changes, Denies confusion, Denies dizziness, Denies frequent falls, Denies loss of vision, Denies numbness and Denies weakness Psychiatric Psychiatric: Denies anxiety, Denies behavioral changes, Denies confusion, Denies depression, Denies homicidal ideation and Denies suicidal ideation Endocrine Endocrine: Denies fatigue, Denies flushing and Denies palpitations Hematologic/Lymphatic Hematologic/Lymphatic: Denies easy bruising Allergic/Immunologic Allergic/Immunologic: Denies urticaria, Denies throat swelling and Denies wheezing Patient History <Blake Covington PA-C - Last Filed: 05/13/23 15:37> Social History Smoking Status: Never smoker Smoking Status: Never smoker Substance Use Type: methamphetamine Exam <Blake Covington PA-C - Last Filed: 05/13/23 15:37> Narrative Exam Narrative: Const General:?cooperative, healthy appearing and comfortable HENKS Head:?normal to inspection Ears:?hearing grossly normal bilaterally Nose:?external nose normal Face and sinus:?normal facial exam and sinuses nontender Mouth:?oral mucosae normal Throat:?posterior oropharynx normal Eyes General:?appearance normal, both eyes and all related structures Neck Neck:?normal visual inspection and no lymphadenopathy noted Resp Effort & Inspection:?normal respiratory effort Auscultation:?clear to auscultation bilaterally Cardio Rate:?regular rate Rhythm:?regular rhythm Integumentary There is a circluar area measuring 3cm diameter of induration and fluctuance with overlying erythema behind the right ear. Neuro General:?patient alert, patient awake and patient oriented x3 Initial Vital Signs Initial Vital Signs: Vital Signs Temperature 97.2 F L 05/13/23 14:24 Pulse Rate 88 05/13/23 14:24 Respiratory Rate 16 05/13/23 14:24 Blood Pressure 145/88 H 05/13/23 14:24 Pulse Oximetry 100 05/13/23 14:24 Oxygen Delivery Method Room Air 05/13/23 14:24 <Sharri Mueller DO - Last Filed: 05/14/23 13:47> Initial Vital Signs Initial Vital Signs: Vital Signs Temperature 97.2 F L 05/13/23 14:24 Pulse Rate 88 05/13/23 14:24 Respiratory Rate 16 05/13/23 14:24 Blood Pressure 145/88 H 05/13/23 14:24 Pulse Oximetry 100 05/13/23 14:24 Oxygen Delivery Method Room Air 05/13/23 14:24 Procedures <Blake Covington PA-C - Last Filed: 05/13/23 15:37> Abscess I/D I&D #1: Site: scalp Side (if applicable): right Local Anesthetic: lidocaine 2% Amount of anesthesia used (mL): 2 Technique: incised with #11 blade Amount of fluid expressed (mL): 0.5 Irrigation: No Packing used?: none Course <Blake Covington PA-C - Last Filed: 05/13/23 15:37> Orders Ordered: Discontinued Medications Diphtheria/Tetanus/Acell Pertussis (Tet,Diph,Pertuss(Acell),Vac/Pf 0.5 Ml Syringe) 0.5 ml IM .ONCE ONE Stop: 05/13/23 14:50 Last Admin: 05/13/23 14:59 Dose: 0.5 ml Documented By: SB Lidocaine HCl (Lidocaine 2% Inj Sdv 5ml) 5 ml INJ INTRA-OP ONE Stop: 05/13/23 14:43 Last Admin: 05/13/23 14:59 Dose: 5 ml Documented By: SB Vital Signs Vital signs: Vital Signs - 8 hr 05/13/23 14:24 Temperature 97.2 F L Pulse Rate 88 Respiratory Rate 16 Blood Pressure 145/88 H Pulse Oximetry 100 Oxygen Delivery Method Room Air <Sharri Mueller DO - Last Filed: 05/14/23 13:47> Orders Ordered: Discontinued Medications Diphtheria/Tetanus/Acell Pertussis (Tet,Diph,Pertuss(Acell),Vac/Pf 0.5 Ml Syringe) 0.5 ml IM .ONCE ONE Stop: 05/13/23 14:50 Last Admin: 05/13/23 14:59 Dose: 0.5 ml Documented By: SB Lidocaine HCl (Lidocaine 2% Inj Sdv 5ml) 5 ml INJ INTRA-OP ONE Stop: 05/13/23 14:43 Last Admin: 05/13/23 14:59 Dose: 5 ml Documented By: SB Vital Signs Vital signs: Vital Signs - 8 hr 05/13/23 14:24 Temperature 97.2 F L Pulse Rate 88 Respiratory Rate 16 Blood Pressure 145/88 H Pulse Oximetry 100 Oxygen Delivery Method Room Air MDM - Skin/Abscess/Foreign Bdy <Blake Covington PA-C - Last Filed: 05/13/23 15:37> MDM Narrative Medical decision making narrative: 53-year-old female with past medical history psoriasis, hypertension, hypothyroidism presents to the ED with 3 days of a lump behind the right ear. Physical exam is consistent with an abscess with overlying cellulitis. I&D performed. Sample sent for wound culture. Prescribed antibiotics. ED return precautions were discussed with patient. Patient verbalized understanding. Medical records reviewed: Yes Discharge Plan Departure Patient Disposition: Home Clinical Impression: Abscess of skin or subcutaneous tissue, Cellulitis Instructions: DI for Cellulitis -- Adult, DI for Skin Abscess Activity Restrictions/Additional Instructions: You were evaluated in the ED today for an abscess behind your right ear. The abscess has been incised and drained. We have sent the sample for culture. You are being started on an antibiotic. Please take the antibiotic as prescribed. Please follow-up with your PCP as soon as possible. Return to the ED if you have worsening symptoms, fever, chills, persistent vomiting. Prescriptions: New doxycycline hyclate 100 mg capsule 100 mg PO BID 7 Days Qty: 14 0RF Referrals: Terrance Lozano PA-C [Primary Care Provider] - Stand Alone Forms: Patient Portal/API ED Sign-out <Sharri Mueller DO - Last Filed: 05/14/23 13:47> Cosign ED Attending Cosmadelinature Attestation: I was immediately available in the department for consultation.
[2023-05-13] MEDS: LIDOCAINE 2% INJ SDV 5ML 5 ML INJ (14:59)
[2023-05-13] MEDS: TET,DIPH,PERTUSS(ACELL),VAC/PF 0.5 ML SYRINGE IM (14:59)
[2023-05-13 15:42] VITALS: BP 146/85; PULSE 77; RESP 20; O2SAT 100
== END 2023-05-13 15:43 | disposition home or self-care (01) ==
PROVIDERS: Emergency Provider Student in an Organized Health Care Education/Training Program; Family Provider Physician Assistant; PCP Physician Assistant
DX: L02.811 Cutaneous abscess of head [any part, except face] (principal); L03.811 Cellulitis of head [any part, except face]; Z23 Encounter for immunization
CPT/HCPCS: 10060; 87070; 87075; 87077; 87186; 87205; 90471; 99283; 90715

== ENCOUNTER 2023-06-23 11:49 | Emergency (ER) | payer OTHER, MEDICAID, SELFPAY ==
[2023-06-23 12:29] VITALS: BP 147/80; PULSE 80; RESP 16; TEMP 36.5; O2SAT 97; BMI 37.2
--- NOTE | 2023-06-23 12:42 | DI.US.S_ITS ---
PROCEDURE: US PERIPH VENOUS LOW EXTREM LT INDICATIONS: swelling pain redness TECHNIQUE: Real-time imaging, as well as color and pulse Doppler interrogation, were performed of the lower extremity deep veins from the inguinal ligament to the popliteal fossa, with documentation of the visualized calf veins. COMPARISON: None. FINDINGS: The common femoral, femoral, popliteal, and the visualized calf veins are normally compressible, and free of intraluminal thrombus. Color and pulse Doppler demonstrate normal phasic intraluminal flow. There is normal augmentation response to distal compression maneuver. IMPRESSION: No findings of lower extremity deep venous thrombosis. Dictated by: Michael Parks M.D. on 06/23/2023 at 12:47 Approved by: Michael Parks M.D. on 06/23/2023 at 12:47
--- NOTE | 2023-06-23 14:18 | ED.EXTPRO ---
HPI - Extremity Problem <Blake Covington PA-C - Last Filed: 06/23/23 14:24> General Chief complaint: Extremity Problem,Nontraumatic Stated complaint: Left leg pain and swelling Time Seen by Provider: 06/23/23 13:09 Source: patient Mode of arrival: Ambulatory History of Present Illness HPI Narrative: 53-year-old female presents to the ED with 3 days of left foot itching, redness, left leg swelling and pain. Patient states that she had an insect bite to her left foot after which her symptoms started. No trauma. Patient denies numbness, tingling, weakness, fever, chills, chest pain, shortness of breath, nausea, vomiting. Related Data Previous Rx's Medication Instructions Recorded cephalexin 500 mg capsule 500 mg PO QID 5 days #20 caps 06/23/23 Allergies Allergy/AdvReac Type Severity Reaction Status Date / Time codeine AdvReac Rash Verified 05/13/23 14:24 Review of Systems <Blake Covington PA-C - Last Filed: 06/23/23 14:24> Constitutional Constitutional: Denies chills, Denies fatigue, Denies fever(s), Denies frequent falls, Denies lethargy and Denies weakness Eyes Eyes: Denies change in vision, Denies eye discharge, Denies irritation and Denies loss of vision ENT Ears, Nose, Mouth, and Throat: Denies change in voice, Denies dizziness, Denies neck pain, Denies sore throat and Denies throat swelling Cardiovascular Cardiovascular: Denies chest pain, Denies irregular heart rhythm, Denies lightheadedness, Denies palpitations, Denies dyspnea, Denies dyspnea on exertion and Denies orthopnea Respiratory Respiratory: Denies cough, Denies dyspnea, Denies dyspnea on exertion and Denies wheezing Gastrointestinal Gastrointestinal: Denies abdominal pain, Denies change in bowel habits, Denies diarrhea, Denies nausea and Denies vomiting Musculoskeletal Musculoskeletal: Denies neck pain and Denies numbness Comments: Left leg and foot pain Integumentary/Breasts Skin/Breast: Reports pruritus, Reports erythema, Denies rash and Denies wounds Comments: Insect bite to left foot Neurologic Neurologic: Denies behavioral changes, Denies confusion, Denies dizziness, Denies frequent falls, Denies loss of vision, Denies numbness and Denies weakness Psychiatric Psychiatric: Denies anxiety, Denies behavioral changes, Denies confusion, Denies depression, Denies homicidal ideation and Denies suicidal ideation Endocrine Endocrine: Denies fatigue, Denies flushing and Denies palpitations Hematologic/Lymphatic Hematologic/Lymphatic: Denies easy bruising Allergic/Immunologic Allergic/Immunologic: Denies urticaria, Denies throat swelling and Denies wheezing Patient History <Blake Covington PA-C - Last Filed: 06/23/23 14:24> Social History Smoking Status: Never smoker Smoking Status: Never smoker Substance Use Type: methamphetamine and other Exam <Blake Covington PA-C - Last Filed: 06/23/23 14:24> Narrative Exam Narrative: Const General:?cooperative, healthy appearing and comfortable HENMT Head:?normal to inspection Ears:?hearing grossly normal bilaterally Nose:?external nose normal Face and sinus:?normal facial exam and sinuses nontender Mouth:?oral mucosae normal Throat:?posterior oropharynx normal Eyes General:?appearance normal, both eyes and all related structures Neck Neck:?normal visual inspection and no lymphadenopathy noted Resp Effort & Inspection:?normal respiratory effort Auscultation:?clear to auscultation bilaterally Cardio Rate:?regular rate Rhythm:?regular rhythm Integumentary There is redness to the left foot with an insect bite to the lateral aspect of the foot. Foot and lower leg appears swollen. Strength and sensation is intact. Full range of motion. Gait is normal. Patient is neurovascularly intact. Neuro General:?patient alert, patient awake and patient oriented x3 Initial Vital Signs Initial Vital Signs: Vital Signs Temperature 97.7 F 06/23/23 12:29 Pulse Rate 80 06/23/23 12:29 Respiratory Rate 16 06/23/23 12:29 Blood Pressure 147/80 H 06/23/23 12:29 Pulse Oximetry 97 06/23/23 12:29 Oxygen Delivery Method Room Air 06/23/23 12:29 <Anita Houston MD - Last Filed: 06/24/23 08:48> Initial Vital Signs Initial Vital Signs: Vital Signs Temperature 97.7 F 06/23/23 12:29 Pulse Rate 80 06/23/23 12:29 Respiratory Rate 16 06/23/23 12:29 Blood Pressure 147/80 H 06/23/23 12:29 Pulse Oximetry 97 06/23/23 12:29 Oxygen Delivery Method Room Air 06/23/23 12:29 Course <Blake Covington PA-C - Last Filed: 06/23/23 14:24> Orders Ordered: ED Orders 06/23/23 12:42 US periph venous low extrem lt Stat Vital Signs Vital signs: Vital Signs - 8 hr 06/23/23 12:29 Temperature 97.7 F Pulse Rate 80 Respiratory Rate 16 Blood Pressure 147/80 H Pulse Oximetry 97 Oxygen Delivery Method Room Air <Anita Houston MD - Last Filed: 06/24/23 08:48> Orders Ordered: ED Orders 06/23/23 12:42 perip venous low extrem lt Stat Vital Signs Vital signs: Vital Signs - 8 hr 06/23/23 12:29 Temperature 97.7 F Pulse Rate 80 Respiratory Rate 16 Blood Pressure 147/80 H Pulse Oximetry 97 Oxygen Delivery Method Room Air MDM - Extremity (Nontraumatic) <Blake Covington PA-C - Last Filed: 06/23/23 14:24> MDM Narrative Medical decision making narrative: 53-year-old female presents to the ED with 3 days of left foot itching, redness, left leg swelling and pain. Symptoms most consistent with cellulitis from the insect bite. Prescribed antibiotics. Recommend follow-up with PCP as soon as possible. ED return precautions discussed with patient. Patient verbalized understanding. Medical records reviewed: Yes. Discharge Plan Departure Patient Disposition: Home Clinical Impression: Cellulitis Instructions: DI for Cellulitis -- Adult Activity Restrictions/Additional Instructions: You were evaluated in the ED today for left leg pain. The ultrasound of the leg was normal and did not show any blood clots. Your symptoms are likely due to the insect bite on your left foot being infected, causing a skin infection and swelling and itching. You are being prescribed antibiotics. Please take the antibiotics as prescribed. Please follow-up with your PCP as soon as possible. Return to the ED if you have worsening symptoms, chest pain, shortness of breath, numbness, tingling, weakness. Prescriptions: New cephalexin 500 mg capsule 500 mg PO QID 5 Days Qty: 20 0RF Referrals: Terrance Lozano PA-C [Primary Care Provider] - Stand Alone Forms: Patient Portal/API ED Sign-out <Anita Houston MD - Last Filed: 06/24/23 08:48> Cosign ED Attending Cosignature Attestation: I was immediately available in the department for consultation throughout this patient's visit. Anita Houston MD
[2023-06-23 14:24] VITALS: BP 146/91; PULSE 80; RESP 18; O2SAT 99
--- NOTE | 2023-06-23 14:29 | PC.NURSE ---
assessment done by provider
== END 2023-06-23 14:30 | disposition home or self-care (01) ==
PROVIDERS: Emergency Provider Student in an Organized Health Care Education/Training Program; Family Provider Physician Assistant; PCP Physician Assistant
DX: L03.116 Cellulitis of left lower limb (principal)
CPT/HCPCS: 93971; 99281; 99283